=== PATIENT | female | born 1975 | race Caucasian/White ===

== ENCOUNTER 2017-01-26 17:13 | Emergency (ER) | payer OTHER, BC ==
[2017-01-26 17:24] VITALS: BP 141/96
[2017-01-26] MEDS ORDERED: Diphtheria,Pertussis(Acell),Tetanus Vaccine 0.5 ML SDV IM ONE (18:49)
[2017-01-26] MEDS ORDERED: Amoxicillin/Clavulanate K 875-125 MG Tab PO ONE (18:49)
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
== END 2017-01-26 19:19 | disposition home or self-care (01) ==
LOC: JD.ED 17:13
DX: S51.852A Open bite of left forearm, initial encounter (principal); S50.12XA Contusion of left forearm, initial encounter; Z88.5 Allergy status to narcotic agent; Z79.899 Other long term (current) drug therapy; Y04.1XXA Assault by human bite, initial encounter
CPT/HCPCS: 90715; 99283; A9270

== ENCOUNTER 2022-03-20 11:45 | Emergency (ER) | payer BC ==
[2022-03-20 12:33] VITALS: BP 151/104; PULSE 68
[2022-03-20] MEDS ORDERED: Ondansetron 4 MG Tab.DIS PO ONE (13:40)
[2022-03-20] MEDS ORDERED: HYDROmorphone 1 MG/ML Syringe IM ONE (13:40)
== END 2022-03-20 16:29 | disposition home or self-care (01) ==
LOC: JD.ED 11:45
DX: S02.2XXA Fracture of nasal bones, initial encounter for closed fracture (principal); E66.9 Obesity, unspecified; Z68.31 Body mass index [BMI] 31.0-31.9, adult; Z88.5 Allergy status to narcotic agent; Z79.899 Other long term (current) drug therapy; Z90.49 Acquired absence of other specified parts of digestive tract; Z90.710 Acquired absence of both cervix and uterus; W18.39XA Other fall on same level, initial encounter
CPT/HCPCS: 70450; 70486; 73130; 93005; 96372; 99284; A9270; J1170

== ENCOUNTER 2023-09-12 17:07 | Emergency (ER) | payer BC ==
[2023-09-12 17:34] LABS: HEMATOCRIT 38.9 % (37.0-47.0); HEMOGLOBIN 13.5 gm/dl (12.0-16.0); IMMATURE GRAN ABSOLUTE AUTO 0.01 K/mm3 (0.00-0.05); IMMATURE GRAN PERCENT AUTO 0.3 % (0.0-0.4); LYMPHOCYTES ABSOLUTE AUTO 1.2 K/mm3 (1.0-4.8); LYMPHOCYTES PERCENT AUTO 32.1 % (24.0-44.0); MEAN CORPUSCULAR HEMOGLOBIN 31.1 pg (28.0-32.0); MEAN CORPUSCULAR HGB CONC 34.7 g/dl (32.0-36.0); MEAN CORPUSCULAR VOLUME 89.6 fl (83.0-99.0); MEAN PLATELET VOLUME 8.5 fl (9.4-12.3); MONOCYTES ABSOLUTE AUTO 0.2 K/mm3 (0.0-0.8); MONOCYTES PERCENT AUTO 6.1 % (0.0-8.0); NEUTROPHILS ABSOLUTE AUTO 2.2 K/mm3 (1.8-7.7); NEUTROPHILS PERCENT AUTO 61.5 % (41.0-71.0); PLATELET COUNT,PLT 195 K/mm3 (150-400); RED BLOOD CELL COUNT 4.34 M/mm3 (4.10-5.30); WHITE BLOOD CELL COUNT,WBC 3.58 K/mm3 (3.9-11.3)
[2023-09-12] MEDS: Sodium Chloride 0.9% 1,000 ML IV SCH (17:44)
[2023-09-12 17:52] LABS: APPEARANCE,URINE CLEAR (Clear); BILIRUBIN,URINE 1+ (Negative); COLOR,URINE YELLOW (Yellow); GLUCOSE,URINE NEGATIVE (Negative); KETONES,URINE TRACE (Negative); LEUKOCYTE ESTERASE,URINE NEGATIVE (Negative); NITRITE,URINE NEGATIVE (Negative); OCCULT BLOOD,URINE NEGATIVE (Negative); PH,URINE 5.5 (5.0-8.0); PROTEIN,URINE 1+ (Negative)
[2023-09-12 17:56] LABS: A/G RATIO 1.3 (1-2); ALANINE AMINOTRANSFERASE,ALT 15 U/L (14-59); ALBUMIN 4.2 g/dl (3.4-5.0); ALKALINE PHOSPHATASE 61 U/L (46-116); ASPARTATE AMNIOTRANSFERASE,AST 18 U/L (15-37); BILIRUBIN TOTAL 0.5 mg/dL (0.2-1.0); BLOOD UREA NITROGEN,BUN 13 mg/dL (7-18); BUN/CREATININE RATIO 8.1 (14-18); CALCIUM 9.7 mg/dL (8.5-10.1); CARBON DIOXIDE,CO2 25 mEq/L (21-32); CHLORIDE,CL 104 mEq/L (98-107); CREATININE 1.6 mg/dL (0.55-1.02); EST CRCL DRUG DOSING (CG) 41.13 mL/min; ESTIMATED GFR 40 mL/min (>60); GLUCOSE RANDOM 87 mg/dL (70-99); PROTEIN TOTAL,TP 7.5 g/dl (6.4-8.2); SODIUM,NA 140 mEq/L (136-145)
[2023-09-12 18:01] LABS: BACTERIA,URINE FEW /hpf (FEW); HYALINE CASTS,URINE 20-30 /lpf (0-5); MUCUS,URINE MANY /hpf (FEW); RBC,URINE 0-5 /hpf (0-5); SQUAMOUS EPITHELIAL CELLS,UR 0-5 /hpf (0-5)
[2023-09-12 18:04] LABS: C-REACTIVE PROTEIN < 0.05 mg/dL (<0.30); MAGNESIUM 1.7 mg/dL (1.8-2.4)
[2023-09-12] MEDS: Iopamidol 612 MG/ML 100 ML Bottle IVPUSH ONE (18:33)
[2023-09-12 20:27] VITALS: BP 138/87; PULSE 87
== END 2023-09-12 20:25 | disposition home or self-care (01) ==
LOC: JD.ED 17:07
DX: R19.7 Diarrhea, unspecified (principal); R79.89 Other specified abnormal findings of blood chemistry; R10.9 Unspecified abdominal pain; E03.9 Hypothyroidism, unspecified; Z88.5 Allergy status to narcotic agent; Z79.890 Hormone replacement therapy; Z79.899 Other long term (current) drug therapy; Z90.49 Acquired absence of other specified parts of digestive tract; Z90.710 Acquired absence of both cervix and uterus
CPT/HCPCS: 36415; 74177; 80053; 81001; 83690; 83735; 85025; 86140; 96360; 99284; J7030; Q9967

== ENCOUNTER 2024-05-03 21:06 | Emergency (ER) | payer BC ==
[2024-05-03] MEDS: Ondansetron 4 MG/2 ML SDV IVPUSH ONE (22:40)
[2024-05-03] MEDS: Acetaminophen 325 MG Tab PO ONE (22:40)
[2024-05-03] MEDS: Sodium Chloride 0.9% 1,000 ML IV ONE (22:40)
[2024-05-03 22:43] LABS: HEMOGLOBIN 13.5 gm/dl (12.0-16.0); IMMATURE GRAN ABSOLUTE AUTO 0.01 K/mm3 (0.00-0.05); IMMATURE GRAN PERCENT AUTO 0.2 % (0.0-0.4); LYMPHOCYTES ABSOLUTE AUTO 2.6 K/mm3 (1.0-4.8); MEAN CORPUSCULAR HEMOGLOBIN 31.2 pg (28.0-32.0); MEAN CORPUSCULAR HGB CONC 33.8 g/dl (32.0-36.0); MEAN CORPUSCULAR VOLUME 92.4 fl (83.0-99.0); MEAN PLATELET VOLUME 8.6 fl (9.4-12.3); MONOCYTES ABSOLUTE AUTO 0.5 K/mm3 (0.0-0.8); MONOCYTES PERCENT AUTO 9.3 % (0.0-8.0); NEUTROPHILS ABSOLUTE AUTO 2.4 K/mm3 (1.8-7.7); NEUTROPHILS PERCENT AUTO 43.5 % (41.0-71.0); PLATELET COUNT,PLT 189 K/mm3 (150-400); RED BLOOD CELL COUNT 4.33 M/mm3 (4.10-5.30); WHITE BLOOD CELL COUNT,WBC 5.51 K/mm3 (3.9-11.3)
[2024-05-03 22:44] LABS: APPEARANCE,URINE CLEAR (Clear); BILIRUBIN,URINE 1+ (Negative); COLOR,URINE YELLOW (Yellow); GLUCOSE,URINE NEGATIVE (Negative); KETONES,URINE TRACE (Negative); LEUKOCYTE ESTERASE,URINE NEGATIVE (Negative); NITRITE,URINE NEGATIVE (Negative); OCCULT BLOOD,URINE NEGATIVE (Negative); PH,URINE 5.5 (5.0-8.0); PROTEIN,URINE 1+ (Negative); UROBILINOGEN,URINE 0.2 (0.2-1.0)
[2024-05-03 22:54] LABS: BARBITURATE SCREEN,URINE NEGATIVE (CUTOFF=200); BENZODIAZEPINES SCREEN,URINE NEGATIVE (CUTOFF=150); BUPRENORPHINE SCREEN,URINE NEGATIVE (CUTOFF=10); METHADONE SCREEN, URINE NEGATIVE (CUTOFF=200); METHAMPHETAMINES SCREEN, URINE NEGATIVE (CUTOFF=500); OXYCODONE SCREEN,URINE NEGATIVE (CUT0FF=100); THC SCREEN,URINE 20 NG/ML NEGATIVE (CUTOFF=50)
[2024-05-03 23:06] LABS: A/G RATIO 1.1 (1-2); ALBUMIN 4.1 g/dl (3.4-5.0); ANION GAP 12.9 (5-15); BILIRUBIN TOTAL 0.3 mg/dL (0.2-1.0); CALCIUM 9.1 mg/dL (8.5-10.1); EST CRCL DRUG DOSING (CG) 67.63 mL/min; MAGNESIUM 1.9 mg/dL (1.8-2.4); PROTEIN TOTAL,TP 7.8 g/dl (6.4-8.2)
[2024-05-03 23:11] LABS: POTASSIUM,K 3.9 mEq/L (3.5-5.1)
[2024-05-03 23:13] LABS: AMPHETAMINES SCREEN, URINE NEGATIVE (CUTOFF=500)
[2024-05-03 23:14] LABS: BACTERIA,URINE FEW /hpf (FEW); EPITHELIAL CELLS,URINE 0-5 /hpf (0-5); MUCUS,URINE MODERATE /hpf (FEW); RBC,URINE 0-5 /hpf (0-5); WBC,URINE 0-5 /hpf (0-5)
[2024-05-04] MEDS: Iopamidol 612 MG/ML 100 ML Bottle IVPUSH ONE (00:03)
[2024-05-04] MEDS: Acetaminophen/oxyCODONE 325-5 MG Tab PO ONE (01:37)
[2024-05-04 01:50] VITALS: BP 102/73; PULSE 61
== END 2024-05-04 01:47 | disposition home or self-care (01) ==
LOC: JD.ED 21:06
DX: R10.31 Right lower quadrant pain (principal); R39.15 Urgency of urination; E03.9 Hypothyroidism, unspecified; E66.9 Obesity, unspecified; Z68.28 Body mass index [BMI] 28.0-28.9, adult; Z90.49 Acquired absence of other specified parts of digestive tract; Z90.710 Acquired absence of both cervix and uterus; Z88.5 Allergy status to narcotic agent; Z79.890 Hormone replacement therapy; Z79.899 Other long term (current) drug therapy
CPT/HCPCS: 36415; 74177; 74177-26; 80053; 80306; 81001; 82550; 83690; 83735; 85025; 96361; 96374; 99284-25; A9270-GY; J2405; J7030; Q9967

== ENCOUNTER 2025-03-12 06:00 | Day surgery (SDC) | payer BC ==
[~2025-03-12 06:00] MED LIST: Sodium Chloride 0.9% 10 ML Syringe FLUSH PRN; Sodium Chloride 0.9% 10 ML Syringe FLUSH SCH
[2025-03-12] MEDS: Lactated Ringers 1,000 ML IV SCH (06:25)
[2025-03-12] MEDS ORDERED: dexmedeTOMIDine HCl 200 MCG/2 ML SDV ONE (06:29)
[2025-03-12] MEDS ORDERED: Propofol 200 MG/20 ML SDV ONE (06:29)
[2025-03-12] MEDS ORDERED: Ketorolac 30 MG/ML SDV IVPUSH PRN (07:21)
[2025-03-12 09:36] VITALS: BP 94/62; PULSE 62
== END 2025-03-12 07:55 | disposition home or self-care (01) ==
LOC: JD.SDS 06:00
PROVIDERS: ATTEND Orthopaedic Surgery
DX: G56.01 Carpal tunnel syndrome, right upper limb (principal); E03.9 Hypothyroidism, unspecified; K21.9 Gastro-esophageal reflux disease without esophagitis; F32.A Depression, unspecified; F41.9 Anxiety disorder, unspecified; Z88.5 Allergy status to narcotic agent; Z88.8 Allergy status to other drugs, medicaments and biological substances; Z79.890 Hormone replacement therapy; Z79.899 Other long term (current) drug therapy
CPT/HCPCS: 26055; 64721; J0665; J2003; J2704; J7120; 01810